=== PATIENT | male | born 1960 | race Caucasian/White ===

== ENCOUNTER 2017-04-18 09:06 | Observation (INO) | payer MEDICAID ==
[2017-04-18] MEDS ORDERED: ceFAZolin 2 GM/DEXTROSE 100 ML IV ONE (10:15)
[2017-04-18] MEDS ORDERED: LR 1,000 ML IV ONE (10:17)
[2017-04-18] MEDS ORDERED: LIDOCAINE 1% 2 ML INJ ID PRN (10:17)
[2017-04-18] MEDS ORDERED: BUPIVACAINE 0.5% 30 ML SDV ONE (12:39)
--- NOTE | 2017-04-18 12:39 | PDHPUP ---
History & Physical Update H&P update statement: This history and physical update is based on an assessment of the patient which was completed after admission or registration (within 24 hours), but prior to the surgery/procedure. H&P update: H&P reviewed & patient examined, no change in patient's condition since H&P completed
[2017-04-18] MEDS ORDERED: MIDAZOLAM 2 MG/2 ML VIAL IVP ONE (12:48)
--- NOTE | 2017-04-18 12:52 | PDANEPAE ---
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) for G-tube ANE Past Medical History - Cardiovascular History Hx Hypertension: No Hx Arrhythmias: No - Pulmonary History Hx COPD: No Hx Recent Upper Respiratory Infection: No Hx Oxygen in Use at Home: No - Renal History Hx Renal Disorders: Yes Renal History Comment: BPH - Liver History Hx Hepatic Disorders: No - GI History GERD: no ANE Review of Systems Review of Systems: - Systems Cardiac: Reports: no symptoms Respiratory: Reports: no symptoms Gastrointestinal: Reports: no symptoms ANE Patient History - Allergies Allergies/Adverse Reactions: No Known Drug Allergies Allergy (Verified 04/17/17 16:40) - NPO status NPO Since - Liquids (Date): 04/17/17 NPO Since - Liquids (Time): 22:00 NPO Since - Solids (Date): 04/17/17 NPO Since - Solids (Time): 22:00 - Anes Hx Anes Hx: no prior problems - Smoking Hx Smoking Status: Current every day smoker Marijuana use: No - Alcohol Use Alcohol Use: Sober ANE Labs/Vital Signs - Vital Signs Blood Pressure: 115/77 Heart Rate: 73 Respiratory Rate: 18 O2 Sat (%): 96 Height: 180.34 cm Weight: 68.946 kg ANE Physical Exam - Airway Neck exam: FROM (limited MO secondary to R jaw pain) Mallampati Score: Class 2 Mouth exam: normal dental/mouth exam - Pulmonary Pulmonary: no respiratory distress - Cardiovascular Cardiovascular: regular rate and rhythym - ASA Status ASA Status: II ANE Anesthesia Plan Anesthesia Plan: general endotracheal anesthesia
[2017-04-18] MEDS ORDERED: fentaNYL 100 MCG/2 ML INJ ONE ×2 (12:58→14:19)
[2017-04-18] MEDS ORDERED: PROPOFOL 200 MG/20 ML VIAL ONE ×2 (12:58)
[2017-04-18] MEDS ORDERED: GLYCOPYRROLATE 0.2 MG/1 ML VIAL ONE (13:15)
[2017-04-18] MEDS ORDERED: DEXAMETHASONE 4 MG/ML VIAL ONE (13:32)
[2017-04-18] MEDS ORDERED: ONDANSETRON 4 MG/2 ML VIAL ONE (13:32)
[2017-04-18] MEDS ORDERED: ROCURONIUM 50 MG/5 ML VIAL ONE (13:33)
[2017-04-18] MEDS ORDERED: HYDROmorphONE/DILAUDID 1 MG/ML INJ IVP PRN ×3 (13:57→16:38)
[2017-04-18] MEDS ORDERED: NALOXONE HCL 0.4 MG/ML INJ IVP PRN (13:57)
[2017-04-18] MEDS ORDERED: PROMETHAZINE HCL 25 MG/ML INJ IVP PRN (13:57)
[2017-04-18] MEDS ORDERED: ACETAMINOPHEN 500 MG TAB PO PRN (13:57)
[2017-04-18] MEDS ORDERED: ALBUTEROL 3 ML DEYVIAL IH PRN (13:57)
--- NOTE | 2017-04-18 14:09 | POSTOPPROG ---
Post Op Note Date of Operation: 04/18/17 Surgeon: Willian Diamond Inspector Assembly: Ellyn DOS SANTOS Anesthesiologist: Dr. Laughlin Anesthesia: GET(General Endotracheal) Pre-op Diagnosis: Tonsillar cancer Post-op Diagnosis: same Indication: Inability to swallow, need for nutrition Procedure: gastrostomy tube placement Inf/Abcess present in the surg proc area at time of surgery?: No Depth: Organ Space EBL: Minimal
--- NOTE | 2017-04-18 14:15 | POSTANESTH ---
Post Anesthetic Evaluation Cardiovascular Status: Normal, Stable Respiratory Status: Normal, Stable Level of Consciousness/Mental Status: Can Participate in Eval, Mildly Sleepy, Arousable Pain Control: Adequate, Prn Tx Ordered Nausea/Vomiting Control: Adequate, Prn Tx Ordered Complications Possibly Related to Anesthesia: None Noted
[2017-04-18] MEDS: fentaNYL 100 MCG/2 ML INJ IVP PRN ×3 (14:22→14:40)
[2017-04-18] MEDS ORDERED: HYDROCODONE/APAP 5/325 TAB ONE (15:00)
[2017-04-18] MEDS ORDERED: ONDANSETRON DISINTEGRATING 4 MG TAB PO PRN (15:02)
[2017-04-18] MEDS ORDERED: ONDANSETRON 4 MG/2 ML VIAL IVP PRN (15:02)
[2017-04-18] MEDS ORDERED: ACETAMINOPHEN 325 MG TAB PO PRN (15:02)
[2017-04-18] MEDS: HYDROCODONE/APAP 5/325 TAB PO PRN ×2 (15:06→16:29)
[2017-04-18] MEDS ORDERED: NS 1,000 ML IV SCH (15:15)
[2017-04-18] MEDS ORDERED: LORazepam 0.5 MG TAB PO PRN (16:36)
[2017-04-18] MEDS ORDERED: KETOROLAC 30 MG/1 ML SDV IVP ONE (16:37)
[2017-04-18] MEDS: [UNRECOGNIZED DRUG - OTHER] PO SCH (20:44)
[2017-04-18] MEDS: DENTA PO SCH (20:44)
[2017-04-18] MEDS ORDERED: Herbals/Supplements -Info Only PO SCH (21:00)
[2017-04-18] MEDS ORDERED: LATANOPROST 0.005% 2.5 ML OPHT DROPS EACHEYE SCH ×2 (21:00)
[2017-04-18] MEDS: KETOROLAC 15 MG/1 ML SDV IVP SCH (22:17)
[2017-04-19 04:06] VITALS: O2SAT 95
[2017-04-19] MEDS: KETOROLAC 15 MG/1 ML SDV IVP SCH ×2 (04:48→10:28)
[2017-04-19 08:09] VITALS: BP 109/64; PULSE 62; RESP 14; TEMP 98.7
--- NOTE | 2017-04-19 09:15 | SOAPPROG ---
SOAP Progress Note Assessment/Plan: Assessment: POD # 1 s/p G tube Flush q 24 hours Tube feeds per CC S: Feeling well. Incision sore Incision cdi. soft. Mildly tender Plan: 04/19/17 09:13 Objective: Vital Signs Temp Pulse Resp BP Pulse Ox 37.1 C 62 14 109/64 95 04/19/17 08:00 04/19/17 08:00 04/19/17 08:00 04/19/17 08:00 04/19/17 08:00 04/18/17 04/19/17 04/20/17 05:59 05:59 05:59 Intake Total 1480 Output Total 15 Balance 1465 ICD10 Worksheet Patient Problems: Problems Problem Status Onset Tonsillar cancer Acute - ICD10 Problem Qualifiers (1) Tonsillar cancer
[2017-04-19] MEDS: DENTA PO SCH (10:27)
[2017-04-19] MEDS: [UNRECOGNIZED DRUG - OTHER] PO SCH (10:27)
--- NOTE | 2017-04-19 11:03 | ASMTCMCOM ---
CM Note CM Note Notes: CM spoke w/RN, anticipate pt will dc home w/support of when medically stable. CM available for any changes. Date Signed: 04/19/2017 11:03 AM Electronically Signed By:Jeanna Schmitz RN
--- NOTE | 2017-04-19 12:09 | ASDISCHSUM ---
Discharge Information Plan Status:Home with No Needs Medically Cleared to Leave: Discharge Date:04/19/2017 11:07 AM CM D/C Disposition:Home, Routine, Self-Care ADT D/C Disposition:Home, Routine, Self-Care Projected Discharge Date:04/19/2017 11:07 AM Transportation at D/C: Discharge Delay Reason: Follow-Up Date:04/19/2017 11:07 AM Discharge Slot: Final Diagnosis: Placement Information Patient Contact Information Contact Name:HARSHA Relationship: Address:[address] [facility] Work Phone: Marisol:[employer] Phone: [facility]/Zip Code:[place] [address] Email: Financial Information Financial Class: Primary Plan Desc:[employer] Primary Plan Number:[id number] Secondary Plan Desc: Secondary Plan Number: Assessment Information [facility] CM Progress Note CM Note CM Note Notes: CM spoke w/RN, anticipate pt will dc home w/support of when medically stable. CM available for any changes. Date Signed: 04/19/2017 11:03 AM Electronically Signed By:Jeanna Schmitz RN Intervention Information
== END 2017-04-19 11:07 | disposition home or self-care (01) ==
LOC: F3E 09:06
PROVIDERS: ADMIT Surgery; ATTEND Surgery
PROC: 0DH60UZ Insertion of Feeding Device into Stomach, Open Approach (ICD-10-PCS; principal; 2017-04-18 11:00)
DX: C09.0 Malignant neoplasm of tonsillar fossa (principal); C04.9 Malignant neoplasm of floor of mouth, unspecified; Z87.891 Personal history of nicotine dependence
CPT/HCPCS: 43830; G0378; J0690; J1100; J1170; J1885; J2250; J2405; J2704; J3010